=== PATIENT | male | born 2005 | race Two or more races ===

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

== ENCOUNTER 2024-02-08 12:20 | Emergency (ER) | payer MEDICAID, OTHER ==
[~2024-02-08] VITALS: Ht 182.9 cm; Wt 94.5 kg
[2024-02-08 13:18] VITALS: BP 121/64; PULSE 62; RESP 16; TEMP 98; O2SAT 99
[2024-02-08] MEDS: IBUPROFEN 600 MG TAB PO ONE (15:09)
[2024-02-08] MEDS: TETANUS-DIPTH-ACEL PERTUSSIS 0.5ML SYR Tdap IM ONE (15:10)
[2024-02-08] MEDS: LIDOCAINE 1% HCL (LOCAL ANESTH.) INJ 20ML MDV IJ ONE (15:58)
== END 2024-02-08 16:38 | disposition home or self-care (01) ==
LOC: ER 12:20
DX: S90.211A Contusion of right great toe with damage to nail, initial encounter (principal); X58.XXXA Exposure to other specified factors, initial encounter; Y93.89 Activity, other specified; Y92.89 Other specified places as the place of occurrence of the external cause; Y99.8 Other external cause status
CPT/HCPCS: 11740; 73660; 90471; 90715; 99284; J2001